=== PATIENT | female | born 1960 | race African-American/Black ===

== ENCOUNTER 2024-05-24 10:45 | Inpatient (IN) | payer OTHER ==
[~2024-05-24 10:45] MED LIST: Iopamidol-370 76% 500 ML MDV (1 ML CHARGE) ONE
[2024-05-24 12:08] LABS: Bacteria/HPF 4+ HPF (None Seen); Bilirubin Negative (Negative); Blood, Urine 3+ (Negative); CAUTI Indications for Culture Urological Procedure; Glucose, Urine (Dipstick) Normal (Negative); Nitrite Negative (Negative); Protein, Urine (Dipstick) 600 mg/dL (Neg-Trace); RBC/HPF Greater than 50 HPF (0-3); Specific Gravity, Urine 1.029 (1.002-1.036); Squamous Epithelial 0-3 HPF (0-3); Urobilinogen Normal mg/dL (Less than 2); WBC/HPF Greater than 50 HPF (0-3); Yeast-Budding 2+ HPF (None Seen); pH, Urine 6.5 (5.0-9.0)
[2024-05-24 12:27] LABS: Clarity Bloody (Clear)
[2024-05-24 12:28] LABS: #Basophils 0.03 10x3/uL (0.0-0.2); #Eosinophils Less than 0.03 10x3/uL (0.0-0.7); %Basophils 0.2 % (0.0-1.0); %Eosinophils 0.1 % (0.0-10.0); %Lymphocytes 8.1 % (21.0-51.0); %Monocytes 7.5 % (0.0-10.0); %Neutrophils 83.7 % (42.0-75.0); Hematocrit 42.2 % (36.0-47.0); Mean Corpuscular HGB CONC 30.8 g/dL (32.0-36.0); Mean Corpuscular Volume 94.2 fL (78.0-98.0); Mean Platelet Volume 10.5 fL (7.4-10.4); Platelet Count 390 10x3/uL (130-400); RBC Distribution Width 14.9 % (11.5-14.5); Red Blood Cell (RBC) Count 4.48 mill/uL (4.20-5.40)
[2024-05-24 12:29] LABS: Leukocyte 500 Leu/uL (Negative)
[2024-05-24 12:30] LABS: Ketone, Urine 20 mg/dL (Negative)
[2024-05-24 12:31] LABS: Urine Culture Reflex Yes Yes
[2024-05-24 12:44] LABS: Acetaminophen Less than 10 mcg/mL (Less than 10); Alcohol Less than 10.0 mg/dL (Less than 10); Salicylate Less than 8.0 mg/dL (Less than 8.0)
[2024-05-24 12:45] LABS: ALT (SGPT) 38 U/L (8-55); AST (SGOT) 95 U/L (5-34); Albumin 2.3 g/dL (3.4-4.8); Alkaline Phosphatase 109 U/L (40-110); Anion Gap 21 mmol/L (10-20); BUN (Urea Nitrogen) 26 mg/dL (9.8-20.1); Bilirubin, Total 0.4 mg/dL (0.2-1.2); CK (CPK) 1191 U/L (29-168); Calc. Creatinine Clearance 0 mL/min (70-130); Calcium 9.4 mg/dL (7.8-10.44); Carbon Dioxide 21 mmol/L (23-31); Chloride 107 mmol/L (98-107); Estimated GFR 44; Globulin 5.3 g/dL (2.4-3.5); Glucose 121 mg/dL (80-115); Lipase 4 U/L (8-78); Potassium 3.5 mmol/L (3.5-5.1); Protein, Total 7.6 g/dL (5.8-8.1); Sodium 145 mmol/L (136-145)
[2024-05-24 12:58] LABS: Troponin I 21.009 ng/mL (< 0.028)
[2024-05-24] MEDS ORDERED: Cefepime 2 GM VIAL ONE (14:34)
[2024-05-24] MEDS ORDERED: Enoxaparin 100 MG (1 mL) SYRINGE ONE (14:34)
[2024-05-24] MEDS ORDERED: LevoFLOXacin 750 mg/D5W 150 ml Premix Bag ONE (14:34)
[2024-05-24 15:41] LABS: Troponin I 20.368 ng/mL (< 0.028)
[2024-05-24] MEDS ORDERED: Dextrose 5% in Water 1,000 ML IV PRN (16:01)
[2024-05-24] MEDS ORDERED: Dextrose 50% Abboject 50 ML SYRINGE SLOW IVP PRN (16:01)
[2024-05-24] MEDS ORDERED: Glucagon 1 MG/ML KIT IM PRN (16:01)
[2024-05-24] MEDS ORDERED: Bisacodyl 5 MG TAB PO PRN (16:01)
[2024-05-24 17:27] VITALS: BMI 50.9
[2024-05-24 17:59] LABS: Hemoglobin A1c 5.4 % (4.0-6.0)
[2024-05-24 18:10] LABS: Cardiac Risk 3.1 (Less than 4.5)
[2024-05-24 18:12] LABS: Acetaminophen Less than 10 mcg/mL (Less than 10); Alcohol Less than 10.0 mg/dL (Less than 10); Salicylate Less than 8.0 mg/dL (Less than 8.0)
[2024-05-24] MEDS: Vancomycin (BATCH) 2.5 GM in Premix 1 BAG IVPB SCH (18:22)
[2024-05-24] MEDS: Lactated Ringer's 1,000 ML IV SCH (18:30)
[2024-05-24 18:45] LABS: Critical Call Chem Troponin I RESULT DECREASING; Troponin I 17.702 ng/mL (< 0.028)
[2024-05-24 19:08] LABS: Amphetamine Not Detected (NotDetected); Barbiturates Screen Not Detected (NotDetected); Benzodiazepine Screen Not Detected (NotDetected); Cocaine Metabolite Screen Not Detected (NotDetected); Methadone Not Detected (NotDetected); Methamphetamine Not Detected (NotDetected); Opiate Screen Not Detected (NotDetected); Oxycodone Screen Not Detected (NotDetected); Phencyclidine (PCP) Not Detected (NotDetected); THC/Cannabinoid Screen Not Detected (NotDetected); Tricyclic Screen Not Detected (NotDetected)
[2024-05-25] MEDS: Enoxaparin 100 MG (1 mL) SYRINGE SC SCH (04:15)
[2024-05-25] MEDS: Cefepime 1 GM in Sodium Chloride 0.9% 100 ML IVPB SCH (04:15)
[2024-05-25 05:05] LABS: #Basophils 0.03 10x3/uL (0.0-0.2); %Basophils 0.3 % (0.0-1.0); %Eosinophils 2.6 % (0.0-10.0); %Lymphocytes 17.4 % (21.0-51.0); %Monocytes 8.4 % (0.0-10.0); %Neutrophils 70.8 % (42.0-75.0); Hematocrit 34.9 % (36.0-47.0); Mean Corpuscular HGB CONC 31.5 g/dL (32.0-36.0); Mean Corpuscular Hemoglobin 28.6 pg (27.0-31.0); Mean Corpuscular Volume 90.6 fL (78.0-98.0); Mean Platelet Volume 10.9 fL (7.4-10.4); Platelet Count 292 10x3/uL (130-400); RBC Distribution Width 14.7 % (11.5-14.5); Red Blood Cell (RBC) Count 3.85 mill/uL (4.20-5.40)
[2024-05-25 05:29] LABS: ALT (SGPT) 31 U/L (8-55); AST (SGOT) 60 U/L (5-34); Albumin 1.8 g/dL (3.4-4.8); Alkaline Phosphatase 78 U/L (40-110); Anion Gap 14 mmol/L (10-20); BUN (Urea Nitrogen) 27 mg/dL (9.8-20.1); Bilirubin, Total 0.3 mg/dL (0.2-1.2); CK (CPK) 858 U/L (29-168); Calc. Creatinine Clearance 66 mL/min (70-130); Calcium 8.3 mg/dL (7.8-10.44); Carbon Dioxide 21 mmol/L (23-31); Chloride 112 mmol/L (98-107); Estimated GFR 47; Globulin 4.2 g/dL (2.4-3.5); Glucose 92 mg/dL (80-115); Potassium 2.9 mmol/L (3.5-5.1); Sodium 144 mmol/L (136-145)
[2024-05-25 06:37] LABS: Magnesium 1.8 mg/dL (1.6-2.6); Phosphorus 3.1 mg/dL (2.3-4.7)
[2024-05-25] MEDS ORDERED: Electrolyte Replacement Protocol FS PRN (08:45)
[2024-05-25] MEDS: Potassium Chloride 20 MEQ TAB PO SCH ×2 (08:52→14:46)
[2024-05-25] MEDS ORDERED: Enoxaparin 40 MG (0.4 mL) SYRINGE SC SCH (09:00)
[2024-05-25] MEDS: Sodium Chloride 0.9% 1,000 ML IV SCH (10:31)
[2024-05-25] MEDS: Magnesium 2 GM/50 ML(in water) 2 GM in Premix 1 BAG IVPB SCH (10:32)
[2024-05-25] MEDS: Electrolyte Replacement Protocol 1 EACH FS ONE (12:12)
[2024-05-25] MEDS: cefTRIAXone\\ROCEPHIN 1 GM in Sodium Chloride 0.9% 100 ML IVPB SCH (14:28)
[2024-05-25] MEDS: FLU (Fluad Triv) TS24-25 (65UP)/MF59C/PF 45 MCG/0.5 ML Syringe IM ONE (14:28)
[2024-05-25 17:26] LABS: Anion Gap 14 mmol/L (10-20); BUN (Urea Nitrogen) 24 mg/dL (9.8-20.1); Calc. Creatinine Clearance 70 mL/min (70-130); Calcium 8.4 mg/dL (7.8-10.44); Carbon Dioxide 22 mmol/L (23-31); Chloride 114 mmol/L (98-107); Estimated GFR 50; Glucose 84 mg/dL (80-115); Potassium 3.9 mmol/L (3.5-5.1); Sodium 146 mmol/L (136-145)
[2024-05-25] MEDS: Perflutren Lipid Microspheres 1.1 MG/ML VIAL ONE (17:53)
[2024-05-25] MEDS: Enoxaparin 40 MG (0.4 mL) SYRINGE SC SCH (20:43)
[2024-05-25] MEDS: hydrALAZINE 20 MG/ML VIAL SLOW IVP PRN (21:03)
[2024-05-26 04:18] LABS: #Basophils 0.03 10x3/uL (0.0-0.2); %Basophils 0.4 % (0.0-1.0); %Eosinophils 4.3 % (0.0-10.0); %Lymphocytes 22.1 % (21.0-51.0); %Monocytes 9.4 % (0.0-10.0); %Neutrophils 63.5 % (42.0-75.0); Hematocrit 34.9 % (36.0-47.0); Hemoglobin 10.6 g/dL (12.0-16.0); Mean Corpuscular HGB CONC 30.4 g/dL (32.0-36.0); Mean Corpuscular Hemoglobin 28.7 pg (27.0-31.0); Mean Corpuscular Volume 94.6 fL (78.0-98.0); Mean Platelet Volume 10.4 fL (7.4-10.4); Platelet Count 283 10x3/uL (130-400); Red Blood Cell (RBC) Count 3.69 mill/uL (4.20-5.40)
[2024-05-26 04:46] LABS: ALT (SGPT) 31 U/L (8-55); AST (SGOT) 45 U/L (5-34); Albumin 1.9 g/dL (3.4-4.8); Alkaline Phosphatase 75 U/L (40-110); Anion Gap 13 mmol/L (10-20); BUN (Urea Nitrogen) 24 mg/dL (9.8-20.1); Bilirubin, Total 0.2 mg/dL (0.2-1.2); Calc. Creatinine Clearance 75 mL/min (70-130); Calcium 8.3 mg/dL (7.8-10.44); Carbon Dioxide 20 mmol/L (23-31); Chloride 115 mmol/L (98-107); Estimated GFR 55; Globulin 4.5 g/dL (2.4-3.5); Glucose 98 mg/dL (80-115); Magnesium 2.2 mg/dL (1.6-2.6); Potassium 3.7 mmol/L (3.5-5.1); Protein, Total 6.4 g/dL (5.8-8.1); Sodium 144 mmol/L (136-145)
[2024-05-26] MEDS: Dapagliflozin Propanediol 10 MG TAB PO SCH (09:21)
[2024-05-26] MEDS: Furosemide 20 MG (2 mL) VIAL SLOW IVP SCH ×2 (09:21→13:54)
[2024-05-26] MEDS: cefTRIAXone\\ROCEPHIN 1 GM in Sodium Chloride 0.9% 100 ML IVPB SCH (13:54)
[2024-05-26] MEDS: Hydrochlorothiazide 25 MG TAB PO SCH (13:54)
[2024-05-26] MEDS: Atorvastatin Calcium 20 MG TAB PO SCH (23:40)
[2024-05-27 05:06] LABS: #Basophils 0.03 10x3/uL (0.0-0.2); %Basophils 0.4 % (0.0-1.0); %Eosinophils 4.4 % (0.0-10.0); %Lymphocytes 24.9 % (21.0-51.0); %Monocytes 9.8 % (0.0-10.0); %Neutrophils 60.1 % (42.0-75.0); Hematocrit 36.8 % (36.0-47.0); Hemoglobin 11.2 g/dL (12.0-16.0); Mean Corpuscular HGB CONC 30.4 g/dL (32.0-36.0); Mean Corpuscular Hemoglobin 28.1 pg (27.0-31.0); Mean Corpuscular Volume 92.2 fL (78.0-98.0); Mean Platelet Volume 10.9 fL (7.4-10.4); Platelet Count 321 10x3/uL (130-400); RBC Distribution Width 14.7 % (11.5-14.5); Red Blood Cell (RBC) Count 3.99 mill/uL (4.20-5.40)
[2024-05-27 06:16] LABS: ALT (SGPT) 30 U/L (8-55); AST (SGOT) 38 U/L (5-34); Albumin 2.1 g/dL (3.4-4.8); Alkaline Phosphatase 82 U/L (40-110); Anion Gap 15 mmol/L (10-20); BUN (Urea Nitrogen) 20 mg/dL (9.8-20.1); Bilirubin, Total 0.2 mg/dL (0.2-1.2); Calc. Creatinine Clearance 77 mL/min (70-130); Carbon Dioxide 23 mmol/L (23-31); Chloride 109 mmol/L (98-107); Estimated GFR 57; Globulin 4.9 g/dL (2.4-3.5); Glucose 103 mg/dL (80-115); Potassium 3.6 mmol/L (3.5-5.1); Sodium 143 mmol/L (136-145)
[2024-05-27] MEDS: Magnesium 2 GM/50 ML(in water) 2 GM in Premix 1 BAG IVPB SCH (09:16)
[2024-05-27] MEDS: Clopidogrel Bisulfate 75 MG TAB PO SCH (09:16)
[2024-05-27] MEDS: Cholecalciferol (Vitamin D3) 400 UNITS TAB PO SCH (09:17)
[2024-05-27] MEDS: Aspirin 81 mg Enteric Coated Tablet PO SCH (09:17)
[2024-05-27] MEDS: Potassium Chloride 20 MEQ TAB PO SCH (09:17)
[2024-05-27] MEDS: Hydrochlorothiazide 25 MG TAB PO SCH (09:17)
[2024-05-27] MEDS: Insulin Lispro 100 UNIT/ML 10 ML VIAL SC PRN (12:24)
[2024-05-27] MEDS ORDERED: Senokot 8.6 MG TAB PO PRN (15:50)
[2024-05-27] MEDS: Polyethylene Glycol 3350 17 GM Packet PO SCH (16:40)
[2024-05-27] MEDS: Acetaminophen 325 MG TAB PO PRN (18:51)
[2024-05-28 04:40] LABS: #Basophils 0.04 10x3/uL (0.0-0.2); %Basophils 0.6 % (0.0-1.0); %Eosinophils 4.6 % (0.0-10.0); %Lymphocytes 24.6 % (21.0-51.0); %Monocytes 11.1 % (0.0-10.0); %Neutrophils 58.7 % (42.0-75.0); Hematocrit 35.6 % (36.0-47.0); Hemoglobin 11.1 g/dL (12.0-16.0); Mean Corpuscular HGB CONC 31.2 g/dL (32.0-36.0); Mean Corpuscular Hemoglobin 29.1 pg (27.0-31.0); Mean Corpuscular Volume 93.4 fL (78.0-98.0); Mean Platelet Volume 10.9 fL (7.4-10.4); Platelet Count 331 10x3/uL (130-400); RBC Distribution Width 14.6 % (11.5-14.5); Red Blood Cell (RBC) Count 3.81 mill/uL (4.20-5.40)
[2024-05-28 04:59] LABS: ALT (SGPT) 28 U/L (8-55); AST (SGOT) 34 U/L (5-34); Albumin 2.1 g/dL (3.4-4.8); Alkaline Phosphatase 77 U/L (40-110); Anion Gap 16 mmol/L (10-20); BUN (Urea Nitrogen) 21 mg/dL (9.8-20.1); Bilirubin, Total 0.2 mg/dL (0.2-1.2); Calc. Creatinine Clearance 67 mL/min (70-130); Calcium 9.1 mg/dL (7.8-10.44); Carbon Dioxide 26 mmol/L (23-31); Chloride 104 mmol/L (98-107); Estimated GFR 48; Globulin 4.8 g/dL (2.4-3.5); Glucose 108 mg/dL (80-115); Potassium 3.5 mmol/L (3.5-5.1); Protein, Total 6.9 g/dL (5.8-8.1); Sodium 142 mmol/L (136-145)
[2024-05-28] MEDS: Magnesium 2 GM/50 ML(in water) 2 GM in Premix 1 BAG IVPB SCH (09:58)
[2024-05-28] MEDS: Polyethylene Glycol 3350 17 GM Packet PO SCH (09:58)
[2024-05-28] MEDS: Potassium Chloride 20 MEQ TAB PO SCH ×2 (09:59→12:40)
[2024-05-28] MEDS: Sacubitril 24MG/Valsartan 26 MG TAB PO SCH (22:18)
[2024-05-29 05:02] LABS: #Basophils 0.03 10x3/uL (0.0-0.2); %Basophils 0.5 % (0.0-1.0); %Monocytes 10.7 % (0.0-10.0); %Neutrophils 57.2 % (42.0-75.0); Hematocrit 38.3 % (36.0-47.0); Mean Corpuscular HGB CONC 31.3 g/dL (32.0-36.0); Mean Corpuscular Hemoglobin 28.2 pg (27.0-31.0); Mean Corpuscular Volume 89.9 fL (78.0-98.0); Mean Platelet Volume 10.6 fL (7.4-10.4); Platelet Count 333 10x3/uL (130-400); RBC Distribution Width 14.4 % (11.5-14.5); Red Blood Cell (RBC) Count 4.26 mill/uL (4.20-5.40)
[2024-05-29 05:19] LABS: ALT (SGPT) 26 U/L (8-55); AST (SGOT) 30 U/L (5-34); Albumin 2.1 g/dL (3.4-4.8); Alkaline Phosphatase 80 U/L (40-110); Anion Gap 17 mmol/L (10-20); BUN (Urea Nitrogen) 19 mg/dL (9.8-20.1); Bilirubin, Total 0.2 mg/dL (0.2-1.2); Calc. Creatinine Clearance 0 mL/min (70-130); Carbon Dioxide 25 mmol/L (23-31); Chloride 101 mmol/L (98-107); Estimated GFR 53; Globulin 4.8 g/dL (2.4-3.5); Glucose 134 mg/dL (80-115); Potassium 3.2 mmol/L (3.5-5.1); Protein, Total 6.9 g/dL (5.8-8.1); Sodium 140 mmol/L (136-145)
[2024-05-29] MEDS: Furosemide 20 MG (2 mL) VIAL SLOW IVP SCH (06:18)
[2024-05-29] MEDS ORDERED: Empagliflozin 10 MG TAB PO SCH (09:00)
[2024-05-29] MEDS: Spironolactone 25 MG TAB PO SCH (09:52)
[2024-05-29] MEDS: Potassium Chloride 20 MEQ TAB PO SCH (11:49)
[2024-05-30 07:16] LABS: #Basophils 0.03 10x3/uL (0.0-0.2); %Basophils 0.5 % (0.0-1.0); %Eosinophils 2.7 % (0.0-10.0); %Lymphocytes 29.9 % (21.0-51.0); %Neutrophils 54.1 % (42.0-75.0); Hematocrit 40.9 % (36.0-47.0); Hemoglobin 12.3 g/dL (12.0-16.0); Mean Corpuscular HGB CONC 30.1 g/dL (32.0-36.0); Mean Corpuscular Hemoglobin 28.5 pg (27.0-31.0); Mean Corpuscular Volume 94.7 fL (78.0-98.0); Platelet Count 374 10x3/uL (130-400); RBC Distribution Width 14.5 % (11.5-14.5); Red Blood Cell (RBC) Count 4.32 mill/uL (4.20-5.40)
[2024-05-30 07:45] LABS: ALT (SGPT) 26 U/L (8-55); AST (SGOT) 26 U/L (5-34); Albumin 2.2 g/dL (3.4-4.8); Alkaline Phosphatase 83 U/L (40-110); Anion Gap 14 mmol/L (10-20); BUN (Urea Nitrogen) 24 mg/dL (9.8-20.1); Bilirubin, Total 0.2 mg/dL (0.2-1.2); Calc. Creatinine Clearance 56 mL/min (70-130); Calcium 8.9 mg/dL (7.8-10.44); Carbon Dioxide 26 mmol/L (23-31); Chloride 104 mmol/L (98-107); Estimated GFR 41; Globulin 4.8 g/dL (2.4-3.5); Glucose 157 mg/dL (80-115); Potassium 3.7 mmol/L (3.5-5.1); Sodium 140 mmol/L (136-145)
[2024-05-31 04:54] LABS: #Basophils 0.03 10x3/uL (0.0-0.2); %Basophils 0.4 % (0.0-1.0); %Eosinophils 2.4 % (0.0-10.0); %Lymphocytes 32.9 % (21.0-51.0); %Monocytes 11.5 % (0.0-10.0); %Neutrophils 52.1 % (42.0-75.0); Mean Corpuscular HGB CONC 30.8 g/dL (32.0-36.0); Mean Corpuscular Hemoglobin 28.9 pg (27.0-31.0); Mean Platelet Volume 10.8 fL (7.4-10.4); Platelet Count 386 10x3/uL (130-400); RBC Distribution Width 14.5 % (11.5-14.5); Red Blood Cell (RBC) Count 4.15 mill/uL (4.20-5.40)
[2024-05-31 05:07] LABS: ALT (SGPT) 26 U/L (8-55); AST (SGOT) 26 U/L (5-34); Albumin 2.2 g/dL (3.4-4.8); Alkaline Phosphatase 78 U/L (40-110); Anion Gap 13 mmol/L (10-20); BUN (Urea Nitrogen) 30 mg/dL (9.8-20.1); Bilirubin, Total 0.2 mg/dL (0.2-1.2); Calc. Creatinine Clearance 54 mL/min (70-130); Calcium 9.1 mg/dL (7.8-10.44); Carbon Dioxide 26 mmol/L (23-31); Chloride 104 mmol/L (98-107); Estimated GFR 39; Globulin 4.7 g/dL (2.4-3.5); Glucose 191 mg/dL (80-115); Potassium 3.5 mmol/L (3.5-5.1); Protein, Total 6.9 g/dL (5.8-8.1); Sodium 139 mmol/L (136-145)
[2024-05-31] MEDS ORDERED: Furosemide 20 MG TAB PO SCH (09:00)
[2024-05-31] MEDS: metFORMIN 500 MG TAB PO SCH (10:31)
[2024-05-31] MEDS: Potassium Chloride 20 MEQ TAB PO SCH (12:02)
[2024-05-31] MEDS ORDERED: metFORMIN 500 MG TAB PO SCH (17:00)
[2024-06-01 05:55] LABS: #Basophils 0.05 10x3/uL (0.0-0.2); %Basophils 0.7 % (0.0-1.0); %Eosinophils 3.4 % (0.0-10.0); %Lymphocytes 33.8 % (21.0-51.0); %Monocytes 10.8 % (0.0-10.0); %Neutrophils 50.7 % (42.0-75.0); Hematocrit 40.8 % (36.0-47.0); Hemoglobin 12.3 g/dL (12.0-16.0); Mean Corpuscular HGB CONC 30.1 g/dL (32.0-36.0); Mean Corpuscular Hemoglobin 28.1 pg (27.0-31.0); Mean Corpuscular Volume 93.4 fL (78.0-98.0); Mean Platelet Volume 10.9 fL (7.4-10.4); Platelet Count 351 10x3/uL (130-400); RBC Distribution Width 14.6 % (11.5-14.5); Red Blood Cell (RBC) Count 4.37 mill/uL (4.20-5.40)
[2024-06-01 06:17] LABS: ALT (SGPT) 28 U/L (8-55); AST (SGOT) 24 U/L (5-34); Albumin 2.4 g/dL (3.4-4.8); Alkaline Phosphatase 85 U/L (40-110); Anion Gap 13 mmol/L (10-20); BUN (Urea Nitrogen) 32 mg/dL (9.8-20.1); Bilirubin, Total 0.2 mg/dL (0.2-1.2); Calc. Creatinine Clearance 52 mL/min (70-130); Calcium 9.3 mg/dL (7.8-10.44); Carbon Dioxide 26 mmol/L (23-31); Chloride 105 mmol/L (98-107); Estimated GFR 38; Globulin 4.7 g/dL (2.4-3.5); Glucose 196 mg/dL (80-115); Potassium 4.1 mmol/L (3.5-5.1); Protein, Total 7.1 g/dL (5.8-8.1); Sodium 140 mmol/L (136-145)
[2024-06-01] MEDS ORDERED: Insulin Glargine 30 UNITS/0.3 ML VIAL SC SCH (10:00)
[2024-06-01] MEDS: Insulin Glargine 30 UNITS/0.3 ML VIAL SC SCH (11:11)
[2024-06-01 14:02] LABS: Creatinine, Urine 72.98 mg/dL (47-110)
[2024-06-02 05:02] LABS: ALT (SGPT) 27 U/L (8-55); AST (SGOT) 24 U/L (5-34); Albumin 2.4 g/dL (3.4-4.8); Alkaline Phosphatase 82 U/L (40-110); Anion Gap 17 mmol/L (10-20); BUN (Urea Nitrogen) 35 mg/dL (9.8-20.1); Bilirubin, Total 0.2 mg/dL (0.2-1.2); Calc. Creatinine Clearance 51 mL/min (70-130); Calcium 9.2 mg/dL (7.8-10.44); Carbon Dioxide 24 mmol/L (23-31); Chloride 104 mmol/L (98-107); Estimated GFR 38; Globulin 4.5 g/dL (2.4-3.5); Glucose 214 mg/dL (80-115); Potassium 4.1 mmol/L (3.5-5.1); Protein, Total 6.9 g/dL (5.8-8.1); Sodium 141 mmol/L (136-145)
[2024-06-02] MEDS: Insulin Glargine 30 UNITS/0.3 ML VIAL SC SCH (07:54)
[2024-06-02] MEDS ORDERED: Insulin Glargine 30 UNITS/0.3 ML VIAL SC SCH (09:00)
[2024-06-02 11:24] VITALS: TEMP 98.9
[2024-06-02 16:07] VITALS: BP 154/72
[2024-06-02] MEDS ORDERED: Spironolactone 25 MG TAB PO SCH (21:00)
== END 2024-06-02 16:07 | DRG 871 ==
LOC: ERS 10:45 → 2NO 16:54
PROVIDERS: ADMIT Family Medicine; ATTEND Family Medicine
PROC: 4A00X4Z Measurement of Central Nervous Electrical Activity, External Approach (ICD-10-PCS; principal; 2024-05-27)
DX: A41.9 Sepsis, unspecified organism (principal); I21.A1 Myocardial infarction type 2; J69.0 Pneumonitis due to inhalation of food and vomit; I50.43 Acute on chronic combined systolic (congestive) and diastolic (congestive) heart failure; N17.9 Acute kidney failure, unspecified; N39.0 Urinary tract infection, site not specified; T79.6XXA Traumatic ischemia of muscle, initial encounter; E11.9 Type 2 diabetes mellitus without complications; E78.5 Hyperlipidemia, unspecified; E86.0 Dehydration; I16.0 Hypertensive urgency; I11.0 Hypertensive heart disease with heart failure; Z99.3 Dependence on wheelchair; W18.30XA Fall on same level, unspecified, initial encounter; Z79.82 Long term (current) use of aspirin; Z79.4 Long term (current) use of insulin; Z79.84 Long term (current) use of oral hypoglycemic drugs; Z79.899 Other long term (current) drug therapy; E87.6 Hypokalemia; R65.20 Severe sepsis without septic shock
CPT/HCPCS: 0439T; 36415; 36416; 51701; 70450; 71260; 72125; 74177; 80053; 80061; 80306; 80307; 81001; 82306; 82550; 82570; 83036; 83605; 83690; 83735; 83880; 84100; 84145; 84300; 84443; 84484; 85025; 87040; 87077; 87081; 87086; 87186; 90653; 93005; 95816; 96372; 96374; 96375; 97139; J0360; J0692; J0696; J1650; J1815; J1940; J1956; J3370; J3475; J7030; J7120; Q9957; Q9967

== ENCOUNTER 2024-06-16 04:44 | Inpatient (IN) | payer OTHER ==
[2024-06-16] MEDS ORDERED: Dextrose 50% Abboject 50 ML SYRINGE SLOW IVP PRN (07:33)
[2024-06-16] MEDS ORDERED: Dextrose 5% in Water 1,000 ML IV PRN (07:33)
[2024-06-16] MEDS ORDERED: Glucagon 1 MG/ML KIT IM PRN (07:33)
[2024-06-16] MEDS ORDERED: Acetaminophen 325 MG TAB PO PRN (07:35)
[2024-06-16] MEDS ORDERED: Ondansetron ODT 4 MG TAB PO PRN (07:35)
[2024-06-16] MEDS: Insulin Lispro 100 UNIT/ML 10 ML VIAL SC PRN (22:01)
[2024-06-16] MEDS: Atorvastatin Calcium 40 MG TAB PO SCH (22:03)
[2024-06-17] MEDS ORDERED: Amiodarone 150 MG/3 ML VIAL ONE (03:20)
[2024-06-17] MEDS ORDERED: EPINEPHrine 1 MG/10 ML Abboject SYRINGE ONE (03:20)
[2024-06-17 03:55] LABS: Hematocrit 47.9 % (36.0-47.0); Hemoglobin 14.1 g/dL (12.0-16.0); Mean Corpuscular HGB CONC 29.4 g/dL (32.0-36.0); Mean Corpuscular Hemoglobin 28.4 pg (27.0-31.0); Mean Corpuscular Volume 96.6 fL (78.0-98.0); Mean Platelet Volume 11.8 fL (7.4-10.4); Platelet Count 243 10x3/uL (130-400); RBC Distribution Width 14.8 % (11.5-14.5); Red Blood Cell (RBC) Count 4.96 mill/uL (4.20-5.40)
[2024-06-17 04:11] LABS: ALT (SGPT) 95 U/L (8-55); AST (SGOT) 87 U/L (5-34); Albumin 2.8 g/dL (3.4-4.8); Alkaline Phosphatase 113 U/L (40-110); Anion Gap 21 mmol/L (10-20); BUN (Urea Nitrogen) 37 mg/dL (9.8-20.1); Bilirubin, Total 0.3 mg/dL (0.2-1.2); Calc. Creatinine Clearance 36 mL/min (70-130); Calcium 9.8 mg/dL (7.8-10.44); Carbon Dioxide 10 mmol/L (23-31); Chloride 113 mmol/L (98-107); Estimated GFR 28; Globulin 5.7 g/dL (2.4-3.5); Glucose 235 mg/dL (80-115); Potassium 3.1 mmol/L (3.5-5.1); Protein, Total 8.5 g/dL (5.8-8.1); Sodium 141 mmol/L (136-145)
[2024-06-17 04:15] LABS: Lactic Acid 7.33 mmol/L (0.5-2.2); Troponin I Less than 0.010 ng/mL (< 0.028)
[2024-06-17] MEDS ORDERED: Sodium Chloride 0.9% 1,000 ML IV SCH (04:30)
[2024-06-17 04:39] LABS: Anisocytosis SLIGHT = 6-15 cells HPF (0-5); Band 4 % (5-11); Eosinophils 3 % (0-10); Large Platelets 5.2 % (0-5); Lymphocytes 58 % (21-51); Metamyelocyte 1 % (0-0); Monocytes 2 % (0-10); Myelocyte 1 % (0-0); Neutrophil 24 % (42-75); Platelet Adequacy Comment Platelets Normal; Polychromasia SLIGHT = 2-3 cells HPF (0-2); Reactive Lymphocytes 5 % (0-10); Smudge Cells 52.6 %; Toxic Granulation SLIGHT
[2024-06-17 04:53] LABS: Hemoglobin A1c 6.8 % (4.0-6.0)
[2024-06-17] MEDS: Sodium Bicarb 50 MEQ/50 ML Abboject 8.4% SYRINGE IVP SCH (05:00)
[2024-06-17] MEDS: Potassium Chloride 20 MEQ in Premix 1 BAG IVPB SCH (05:01)
[2024-06-17] MEDS: Sodium Chloride 0.9% 1,000 ML IV SCH (05:01)
[2024-06-17] MEDS: Insulin Lispro 100 UNIT/ML 10 ML VIAL SC PRN (06:06)
[2024-06-17 07:03] LABS: Troponin I 0.052 ng/mL (< 0.028)
[2024-06-17 08:06] LABS: Lactic Acid 3.82 mmol/L (0.5-2.2)
[2024-06-17] MEDS ORDERED: Electrolyte Replacement Protocol FS PRN (08:30)
[2024-06-17] MEDS: Aspirin 81 mg Enteric Coated Tablet PO SCH (10:06)
[2024-06-17] MEDS: Clopidogrel Bisulfate 75 MG TAB PO SCH (10:06)
[2024-06-17] MEDS: Sodium Bicarbonate 150 MEQ in Dextrose 5% in Water 1,000 ML IV SCH (10:06)
[2024-06-17 10:27] LABS: Potassium 4.6 mmol/L (3.5-5.1)
[2024-06-17 10:29] LABS: Troponin I 0.095 ng/mL (< 0.028)
[2024-06-17] MEDS: Electrolyte Replacement Protocol 1 EACH FS ONE (10:38)
[2024-06-17 11:15] LABS: Magnesium 2.8 mg/dL (1.6-2.6); Phosphorus 7.7 mg/dL (2.3-4.7)
[2024-06-17 16:07] LABS: Anion Gap 24 mmol/L (10-20); BUN (Urea Nitrogen) 43 mg/dL (9.8-20.1); Calc. Creatinine Clearance 35 mL/min (70-130); Calcium 10.3 mg/dL (7.8-10.44); Carbon Dioxide 17 mmol/L (23-31); Chloride 111 mmol/L (98-107); Estimated GFR 26; Glucose 221 mg/dL (80-115); Potassium 3.8 mmol/L (3.5-5.1); Sodium 148 mmol/L (136-145)
[2024-06-18 06:50] LABS: #Basophils 0.04 10x3/uL (0.0-0.2); #Eosinophils Less than 0.03 10x3/uL (0.0-0.7); %Basophils 0.3 % (0.0-1.0); %Eosinophils 0.1 % (0.0-10.0); %Lymphocytes 12.9 % (21.0-51.0); %Monocytes 9.7 % (0.0-10.0); %Neutrophils 76.6 % (42.0-75.0); Hemoglobin 13.1 g/dL (12.0-16.0); Mean Corpuscular HGB CONC 32.8 g/dL (32.0-36.0); Mean Corpuscular Hemoglobin 29.2 pg (27.0-31.0); Mean Corpuscular Volume 89.3 fL (78.0-98.0); Mean Platelet Volume 12.6 fL (7.4-10.4); Platelet Count 221 10x3/uL (130-400); RBC Distribution Width 14.7 % (11.5-14.5); Red Blood Cell (RBC) Count 4.48 mill/uL (4.20-5.40)
[2024-06-18 08:31] VITALS: BP 157/69; TEMP 98.4
[2024-06-18 08:42] LABS: Lactic Acid 2.99 mmol/L (0.5-2.2)
[2024-06-18 08:46] LABS: ALT (SGPT) 63 U/L (8-55); AST (SGOT) 63 U/L (5-34); Albumin 2.7 g/dL (3.4-4.8); Alkaline Phosphatase 88 U/L (40-110); Anion Gap 18 mmol/L (10-20); BUN (Urea Nitrogen) 42 mg/dL (9.8-20.1); Bilirubin, Total 0.5 mg/dL (0.2-1.2); Calc. Creatinine Clearance 38 mL/min (70-130); Carbon Dioxide 22 mmol/L (23-31); Chloride 110 mmol/L (98-107); Estimated GFR 28; Globulin 4.9 g/dL (2.4-3.5); Glucose 313 mg/dL (80-115); Protein, Total 7.6 g/dL (5.8-8.1); Sodium 147 mmol/L (136-145)
[2024-06-18] MEDS ORDERED: Potassium Chloride 20 MEQ TAB PO SCH (10:00)
[2024-06-18] MEDS: Potassium Chloride 20 MEQ in Premix 1 BAG IVPB SCH (10:28)
[2024-06-18] MEDS ORDERED: Lorazepam 2 MG/ML VIAL SLOW IVP PRN (11:20)
[2024-06-18] MEDS ORDERED: Glycopyrrolate 0.4 MG/ 2 ML VIAL SLOW IVP PRN (11:24)
[2024-06-18] MEDS: Morphine 2 MG/ML VIAL SLOW IVP PRN (11:30)
== END 2024-06-18 12:10 | disposition expired | DRG 64 ==
LOC: 2SE 06:59 → CCU 06-17 03:50 → OBSVTOIN 06-17 04:28 → T4-A 06-17 11:16
PROVIDERS: ADMIT Family Medicine; ATTEND Family Medicine
PROC: 5A12012 Performance of Cardiac Output, Single, Manual (ICD-10-PCS; principal; 2024-06-17)
DX: I63.9 Cerebral infarction, unspecified (principal); J69.0 Pneumonitis due to inhalation of food and vomit; K72.00 Acute and subacute hepatic failure without coma; E87.20 Acidosis, unspecified; N17.9 Acute kidney failure, unspecified; G81.93 Hemiplegia, unspecified affecting right nondominant side; I42.0 Dilated cardiomyopathy; I50.42 Chronic combined systolic (congestive) and diastolic (congestive) heart failure; I11.0 Hypertensive heart disease with heart failure; Z66 Do not resuscitate; Z51.5 Encounter for palliative care; R47.01 Aphasia; E78.5 Hyperlipidemia, unspecified; R47.81 Slurred speech; R47.1 Dysarthria and anarthria; E11.40 Type 2 diabetes mellitus with diabetic neuropathy, unspecified; R29.707 NIHSS score 7; R74.01 Elevation of levels of liver transaminase levels; I49.01 Ventricular fibrillation; I46.8 Cardiac arrest due to other underlying condition; E87.6 Hypokalemia; E11.51 Type 2 diabetes mellitus with diabetic peripheral angiopathy without gangrene; S41.101A Unspecified open wound of right upper arm, initial encounter; S21.009A Unspecified open wound of unspecified breast, initial encounter; S31.000A Unspecified open wound of lower back and pelvis without penetration into retroperitoneum, initial encounter; Z98.890 Other specified postprocedural states; Z74.01 Bed confinement status; Z99.89 Dependence on other enabling machines and devices; Z88.8 Allergy status to other drugs, medicaments and biological substances; Z89.612 Acquired absence of left leg above knee; Z89.611 Acquired absence of right leg above knee; Z79.82 Long term (current) use of aspirin; Z79.899 Other long term (current) drug therapy; Z79.02 Long term (current) use of antithrombotics/antiplatelets
CPT/HCPCS: 36415; 36416; 71045; 80053; 80061; 83036; 83605; 83735; 84100; 84443; 84484; 85025; 93005; 93010; 93306; 93880; 97139; G0378; J0171; J0282; J1815; J2272; J3480; J7030; J7070